=== PATIENT | male | born 2000 | race Two or more races ===

== ENCOUNTER 2024-10-09 09:40 | Day surgery (SDC) | payer SELFPAY ==
[2024-10-09] MEDS ORDERED: Propofol 200 MG/20 ML SDV ONE ×2 (10:52→12:02)
[2024-10-09] MEDS ORDERED: Glycopyrrolate 0.2 MG/ML 2 ML SDV ONE (10:52)
[2024-10-09] MEDS ORDERED: fentaNYL 100 MCG/2 ML SDV ONE (10:52)
[2024-10-09] MEDS ORDERED: Rocuronium 50 MG/5 ML Vial ONE (10:52)
[2024-10-09] MEDS ORDERED: Midazolam 1 MG/ML 2 ML SDV ONE (10:52)
[2024-10-09] MEDS ORDERED: Succinylcholine 200 MG/10 ML MDV ONE (10:52)
[2024-10-09] MEDS ORDERED: Dexamethasone 4 MG/ML 5 ML MDV ONE (10:52)
[2024-10-09] MEDS ORDERED: Lidocaine 2% 5 ML SDV ONE (10:52)
[2024-10-09] MEDS: EPINEPHrine 1 MG/ML SDV ONE (12:04)
[2024-10-09] MEDS ORDERED: Lactated Ringers 1,000 ML ONE (12:06)
[2024-10-09] MEDS ORDERED: Acetaminophen 325 MG Tab PO ONE (12:33)
[2024-10-09] MEDS ORDERED: Acetaminophen/oxyCODONE 325-5 MG Tab PO PRN (12:33)
[2024-10-09] MEDS: Bupivacaine 0.5% 30 ML SDV ONE (12:53)
== END 2024-10-09 14:09 | disposition home or self-care (01) ==
LOC: JD.SDS 09:40
PROVIDERS: ATTEND Surgery
DX: L05.01 Pilonidal cyst with abscess (principal)
CPT/HCPCS: 11770; J0171; J0665; J1596; J2003; J2250; J2704; J3010; J7120; 00300; J0330; J1100; J3490